=== PATIENT | female | born 1990 | race American Indian/Alaskan Native ===

== ENCOUNTER 2019-03-24 08:46 | Inpatient (IN) | payer BC, MEDICAID ==
--- NOTE | 2019-03-24 09:30 | History and Physical Report ---
History of Present Illness Date of examination: 03/24/19 Date of admission: 03/24/19 08:46 Chief complaint: C Section History of present illness: Pt is a 29yo BF EDC 03/30/19; EGA 39 1/7 weeks presents for repeat C Section. She received care at [facility] since 14 weeks and co-managed by [facility] for GDM - on Glyburide, Previous demise and Obesity. records are available and GBS is positive. Past History Past Medical History: diabetes (GDM - on Glyguride), other (Obesity) Past Surgical History: section CALL CENTER DIRECTOR History: trichomonas Social history: no significant social history, single - Obstetrical History Expected Date of Delivery: 03/30/19 Actual Gestation: 39 Week(s) 1 Day(s) : 2 Medications and Allergies Allergies Allergy/AdvReac Type Severity Reaction Status Date / Time No Known Allergies Allergy Verified 03/24/19 10:15 Home Medications Medication Instructions Recorded Confirmed Last Taken Type Preplus Ca-Fe 27 mg-FA 1 mg Tb 1 tab PO DAILY 03/24/19 03/24/19 03/21/19 History Active Meds: Active Medications Citric Acid/Sodium Citrate (Bicitra) 30 ml PO ONCE ONE Stop: 03/24/19 09:24 Famotidine (Pepcid) 20 mg IV ONCE ONE Stop: 03/24/19 09:24 Cefazolin Sodium (Ancef/Sterile Water 2 Gm/20 Ml) 2 gm in 20 mls @ 80 mls/hr IV PREOP NR; Protocol Oxytocin/Sodium Chloride (Pitocin/Ns 20 Unit/1000ml Drip) 20 units in 1,000 mls @ 0 mls/hr IV TITR TERESA Lactated Ringer's (Lactated Ringers) 1,000 mls @ 2,250 mls/hr IV PREOP TERESA Stop: 03/25/19 10:27 Metoclopramide HCl (Reglan) 10 mg IV ONCE ONE Stop: 03/24/19 09:24 Review of Systems All systems: negative - Vital Signs Vital signs: Vital Signs Temp Resp 98.6 F 03/24/19 08:57 03/24/19 08:57 Temp Pulse Resp BP Pulse Ox 98.6 F 03/24/19 08:57 03/24/19 08:57 - Physical Exam Breasts: Positive: deferred Cardiovascular: Regular rate Lungs: Positive: Clear to auscultation Abdomen: Positive: normal appearance Genitourinary (Female): Positive: normal external genitalia Uterus: Positive: enlarged Extremities: Positive: normal - Obstetrical FHR: category 1 Uterine Contraction Monitor Mode: External Results Result Diagrams: 03/24/19 10:05 All other labs normal. Assessment and Plan - Patient Problems (1) 39 weeks gestation of Onset Date: 03/24/19 Current Visit: Yes Status: Acute Plan to address problem: A: IUP @ 39 1/7 weeks Previous C Section GDM - on Glyburide P: Admit to L&D for a Repeat C Section Check BS's (2) GDM (gestational diabetes mellitus) Onset Date: 03/24/19 Current Visit: Yes Status: Acute Qualifiers: Gestational diabetes mellitus control: oral hypoglycemic-controlled Trimester: third trimester Qualified Code(s): O24.415 - Gestational diabetes mellitus in , controlled by oral hypoglycemic drugs (3) Previous section Onset Date: 03/24/19 Current Visit: Yes Status: Resolved
[2019-03-24] MEDS ORDERED: ceFAZolin/Water 2 GM/20 ML 2 GM/20 ML SYRINGE IV NR (10:00)
[2019-03-24] MEDS ORDERED: OXYTOCIN 20 UNIT/1000ML DRIP 20 UNITS/1,000 ML BAG IV SCH ×2 (10:00→14:00)
[2019-03-24] MEDS ORDERED: FAMOTIDINE 20 MG/2 ML INJ IV NR (10:30)
[2019-03-24] MEDS ORDERED: BICITRA ORAL LIQD 30ML PO NR (10:30)
[2019-03-24] MEDS ORDERED: METOCLOPRAMIDE 10 MG/2 ML INJ IV NR (10:30)
[2019-03-24] MEDS: LACTATED RINGERS 1,000 ML IV SCH ×2 (10:38→11:30)
[2019-03-24] MEDS ORDERED: ONDANSETRON 4 MG/2 ML INJ ONE (10:40)
[2019-03-24] MEDS ORDERED: DEXMEDETOMIDINE 200 MCG/2 ML VIAL IV ONE (10:40)
[2019-03-24] MEDS ORDERED: KETOROLAC 30 MG/1 ML INJ ONE (10:40)
[2019-03-24 10:50] LABS: Basophils % (Auto) 0.3 % (0.0-1.8); Eosinophils # (Auto) 0.1 K/mm3 (0.0-0.4); Eosinophils % (Auto) 0.8 % (0.0-4.3); Hematocrit 37.9 % (30.3-42.9); Hemoglobin 12.5 gm/dl (10.1-14.3); Lymphocytes % (Auto) 20.8 % (13.4-35.0); Mean Corpuscular HGB Conc 33 % (30-34); Mean Corpuscular Volume 90 fl (79-97); Monocytes # (Auto) 0.9 K/mm3 (0.0-0.8); Monocytes % (Auto) 8.7 % (0.0-7.3); Platelet Count 169 K/mm3 (140-440); Red Blood Count 4.24 M/mm3 (3.65-5.03); Red Cell Distribution Width 15.1 % (13.2-15.2)
[2019-03-24] MEDS ORDERED: diphenhydrAMINE 50 MG/ML VIAL IV PRN (11:37)
[2019-03-24] MEDS ORDERED: HYDROmorphone 1 MG/1 ML INJ IV PRN ×2 (11:37)
[2019-03-24] MEDS ORDERED: ONDANSETRON 4 MG/2 ML INJ IV PRN (11:37)
--- NOTE | 2019-03-24 11:40 | Anesthesia Consultation ---
Anesthesia Consult and Med Hx Date of service: 03/24/19 - Airway Anesthetic Teeth Evaluation: Good ROM Head & Neck: Adequate Mental/Hyoid Distance: Adequate Mallampati Class: Class III Intubation Access Assessment: Probably Good - Pulmonary Exam CTA: Yes - Cardiac Exam Cardiac Exam: RRR - Pre-Operative Health Status ASA Pre-Surgery Classification: ASA3 Proposed Anesthetic Plan: Spinal - Pulmonary Hx Smoking: No Hx Asthma: No Hx Respiratory Symptoms: No SOB: No COPD: No Home Oxygen Therapy: No Hx Pneumonia: No Hx Sleep Apnea: No - Cardiovascular System Hx Hypertension: No Hx Coronary Artery Disease: No Hx Heart Attack/AMI: No Hx Angina: No Hx Percutaneous Transluminal Coronary Angioplasty (PTCA): No Hx Cardia Arrhythmia: No Hx Pacemaker: No Hx Internal Defibrillator: No Hx Valvular Heart Disease: No Hx Heart Murmur: No Hx Peripheral Vascular Disease: No - Central Nervous System Hx Neuromuscular Disorder: No Hx Seizures: No CVA: No Hx Back Pain: Yes Hx Psychiatric Problems: No - Gastrointestinal Hx Ulcer: No Hx Gastroesophageal Reflux Disease: No - Endocrine Hx Renal Disease: No Hx End Stage Renal Disease: No Hx Cirrhosis: No Hx Liver Disease: No Hx Insulin Dependent Diabetes: No Hx Non-Insulin Dependent Diabetes: Yes (geastational DM) Hx Thyroid Disease: No Hx Hypothyroidism: No Hx Hyperthyroidism: No - Hematic Hx Anemia: Yes Hx Sickle Cell Disease: No - Other Systems Hx Alcohol Use: No Hx Substance Use: No Hx Cancer: No Hx Obesity: Yes (BMI 45)
--- NOTE | 2019-03-24 11:41 | Anesthesia Day of Surgery ---
Anesthesia Day of Surgery - Day of Surgery Patient Examined: Yes Patient H&P Reviewed: Yes Patient is NPO: Yes Beta Blockers: No Cardiac Clearance: No Pulmonary Clearance: No Jeremy's Test: N/A
[2019-03-24] MEDS ORDERED: PHENYLEPHRINE 10 MG/1 ML INJ SDV ONE (13:04)
[2019-03-24] MEDS ORDERED: SODIUM CHLORIDE 0.9% IRR 1,500 ML BOTTLE IR ONE (13:06)
[2019-03-24] MEDS ORDERED: WATER FOR IRRIG STERILE 1,500 ML BOTTLE IR ONE (13:06)
[2019-03-24] MEDS ORDERED: WITCH HAZEL/ GLYCERIN PAD TP PRN (13:40)
[2019-03-24] MEDS ORDERED: ACETAMINOPHEN 325 MG TAB PO PRN (13:40)
[2019-03-24] MEDS ORDERED: NALOXONE 0.4 MG/1 ML INJ IV PRN (13:40)
[2019-03-24] MEDS ORDERED: KETOROLAC 30 MG/1 ML INJ IV PRN (13:40)
[2019-03-24] MEDS ORDERED: SENNOSIDES 8.6 MG TAB PO PRN (13:40)
[2019-03-24] MEDS ORDERED: MAGNESIUM HYDROXIDE (MOM) ORAL LIQD UDC PO PRN (13:40)
[2019-03-24] MEDS ORDERED: LANOLIN/ZINC/DIMETHICONE (LANSINOH) 7 GM TP PRN (13:40)
[2019-03-24] MEDS ORDERED: PROMETHAZINE 25 MG RECT SUPP PR PRN (13:40)
[2019-03-24] MEDS ORDERED: oxyCODONE /ACETAMINOPHEN 5-325MG TAB PO PRN (13:40)
[2019-03-24] MEDS ORDERED: SIMETHICONE 80 MG CHEW TAB PO PRN (13:40)
[2019-03-24] MEDS ORDERED: D5W/LACTATED RINGERS 1,000 ML IV SCH (14:00)
--- NOTE | 2019-03-24 14:07 | Post Anesthesia Evaluation ---
- Post Anesthesia Evaluation Patient Participated: Yes Airway Patent: Yes Stable Respiratory Function: Yes Nausea/Vomiting: No Temp > 96.8F: Yes Pain Manageable: Yes Adequeate Hydration: Yes Anesthesia Complications: No Block Receding Appropriately: Yes Patient on Ventilator: No
--- NOTE | 2019-03-24 17:01 | Operative Report ---
Operative Report Operative Report: Date of procedure: 03/24/2019 Pre-operative diagnosis: 1. Intrauterine at 39 1/7 weeks 2. Previ ous C Section Post-operative diagnosis: Same with lower uterine segment adhesions Procedure name(s): Repeat low transverse section Surgeon: Jean-Claude Torres MD Partition Assembler: None Anesthesia: Spinal anesthesia by Kay Onofre CRNA EBL: 900 mL's Findings: A 3114 g male infant Apgars 8 at 1 minute and 9 at 5 minutes. 1+ meconium amniotic fluid. Normal uterus with lower uterine segment adhesions. Normal tubes and ovaries bilaterally. Procedure: After the patient was prepped and draped in usual sterile fashion, and after satisfactory level of epidural anesthesia was obtained, the skin knife was used to make a transverse skin incision through the previous skin scar. The incision was excised down to layer of the fascia, which was nicked in the midline and extended laterally using the Bovie cautery. The rectus muscles were dissected off the rectus fascia both superiorly and inferiorly. The rectus bellies in the midline, and the peritoneum was entered under direct visualization. The peritoneal incision was extended superiorly and inferiorly. The lower uterine adhesions were taken down using both sharp and blunt dissection. A bladder flap was created and the bladder blade was then placed. The uterus was scored in a curvilinear linear fashion, entered in the midline revealing 1+ meconium amniotic fluid. The 's head was delivered onto the surgical field, and the oropharynx and nasopharynx were bulb suctioned. The rest of the 's body was delivered, cord was doubly clamped and cut and the infant was handed to the waiting respiratory team. Cord blood was then obtained. The placenta was manually removed from the uterus, and the uterus removed from its normal anatomical position. After gentle uterine lavage, the incision was inspected and found to be without extensions. It was then closed in 2 layers using 0 Vicryl suture in a running interlocking fashion, the second layer imbricating the first. After good hemostasis was achieved, copious amounts or irrigation was performed, and the gutters were suctioned free of blood and blood clots. The Tisseel sealant was sprayed across the uterine incision, and excellent hemostasis was assured. The uterus was then returned to its normal anatomical position, and after excellent hemostasis assured, the peritoneum was re-approximated using 3-0 Vicryl suture in a running interlocking fashion, and then the rectus muscles were re-approximated using 3-0 Vicryl suture in a [id number] configuration. The fascia was then re-approximated using 0 Vicryl suture in running interlocking fashion. The subcutaneous layer was made hemostatic using Bovie cautery, and the skin edges re-approximated using 4-0 Vicryl suture in a sub-cuticular fashion. Patient tolerated the procedure well was transported to recovery in stable condition.
[2019-03-24] MEDS: ceFAZolin/NS 1 GM/50 ML 1 GM/50 ML BAG IV SCH (17:50)
[2019-03-24] MEDS: HYDROcodone/ACETAMINOPHEN 5-325 MG TAB PO PRN (21:56)
[2019-03-25 02:48] LABS: Hematocrit 32.2 % (30.3-42.9); Hemoglobin 10.3 gm/dl (10.1-14.3)
[2019-03-25] MEDS: ceFAZolin/NS 1 GM/50 ML 1 GM/50 ML BAG IV SCH (02:58)
[2019-03-25] MEDS: IBUPROFEN 800 MG TAB PO PRN (05:40)
[2019-03-25] MEDS: HYDROcodone/ACETAMINOPHEN 5-325 MG TAB PO PRN ×2 (05:40→15:45)
[2019-03-25] MEDS: PRENATAL VIT27-FE FUMARATE-FOLIC ACID VIT TAB PO SCH (10:28)
[2019-03-25] MEDS: FERROUS SULFATE 325 MG TAB PO SCH (10:28)
--- NOTE | 2019-03-25 10:47 | Progress Note ---
Assessment and Plan - Patient Problems (1) 39 weeks gestation of Onset Date: 03/24/19 Current Visit: Yes Status: Resolved (2) GDM (gestational diabetes mellitus) Onset Date: 03/24/19 Current Visit: Yes Status: Resolved Qualifiers: Gestational diabetes mellitus control: oral hypoglycemic-controlled Tr imester: third trimester Qualified Code(s): O24.415 - Gestational diabetes mellitus in , controlled by oral hypoglycemic drugs (3) Previous section Onset Date: 03/24/19 Current Visit: Yes Status: Resolved (4) Status post Onset Date: 03/25/19 Current Visit: Yes Status: Resolved Plan to address problem: A: S/P Repeat C Section - POD #1 Doing well Asymptomatic anemia - stable GDM - stable P: Continue RPOC D/C accuchecks Anticipate discharge in 24-48hrs Subjective - Subjective Date of service: 03/25/19 Principal diagnosis: s/p Repeat C Section - POD #1 Interval history: Pt is feeling well without complaints. Bleeding improved. Patient reports: appetite normal, voiding normally, pain well controlled, flatus, ambulating normally, no dizzy ambulation, no nauseated : doing well, nursing well, bottle feeding Objective - Vital Signs Latest vital signs: Vital Signs Temp Pulse Resp BP BP Pulse Ox 03/25/19 07:46 98.1 F 60 20 78/39 98 03/25/19 05:18 80 97 03/25/19 04:41 98.4 F 20 108/62 03/25/19 00:14 98.5 F 81 20 105/43 99 03/24/19 20:58 97.9 F 18 03/24/19 20:13 71 93/42 98 03/24/19 17:04 98.5 F 56 L 18 93/44 100 03/24/19 14:44 98.1 F 03/24/19 14:30 56 L 20 98/44 92 03/24/19 14:15 57 L 15 103/42 96 03/24/19 14:00 66 13 102/51 99 03/24/19 13:55 50 L 12 118/66 99 03/24/19 13:48 98.3 F 66 12 102/43 99 03/24/19 13:15 97.7 F 62 16 99/62 100 03/24/19 12:35 90 155/90 03/24/19 12:32 80 146/92 03/24/19 12:21 79 159/89 03/24/19 12:04 83 158/90 Intake and Output 03/24/19 03/25/19 03/25/19 22:59 06:59 14:59 Intake Total 290 120 Output Total 450 Balance 290 -450 120 Intake: IV 50 ANCEF/NS 1 GM/50 ML 1 gm 50 In 50 ml @ 100 mls/hr IV Q8H [facility] Rx#:[id number] Oral 240 120 Output: Urine 450 Indwelling Catheter 400 Void 50 Other: Total, Intake Amount 240 120 Total, Output Amount 450 # Voids Void 1 - Exam Breasts: Present: deferred Abdomen: Present: normal appearance, soft Uterus: Present: normal, firm, fundal height below umbilicus Extremities: Present: normal Incision: Present: normal, dry, intact, dressed - Labs Labs: Abnormal lab results 03/24/19 03/24/19 Range/Units 10:05 23:42 [place] % (Auto) 8.7 H (0.0-7.3) % [place] # 0.9 H (0.0-0.8) K/mm3 POC Glucose 108 H (70-105) Laboratory Tests 03/24/19 03/24/19 03/24/19 10:02 10:05 10:05 WBC 9.8 RBC 4.24 Hgb 12.5 Hct 37.9 MCV 90 MCH 30 MCHC 33 RDW 15.1 Plt Count 169 Lymph % (Auto) 20.8 [place] % (Auto) 8.7 H Eos % (Auto) 0.8 Baso % (Auto) 0.3 Lymph # 2.0 [place] # 0.9 H Eos # 0.1 Baso # 0.0 Seg Neutrophils % 69.4 Seg Neutrophils # 6.8 POC Glucose 98 RPR Blood Type O POSITIVE Antibody Screen Negative 03/24/19 03/24/19 03/25/19 10:05 23:42 02:21 WBC RBC Hgb 10.3 Hct 32.2 MCV MCH MCHC RDW Plt Count Lymph % (Auto) [place] % (Auto) Eos % (Auto) Baso % (Auto) Lymph # [place] # Eos # Baso # Seg Neutrophils % Seg Neutrophils # POC Glucose 108 H RPR Nonreactive Blood Type Antibody Screen 09/25/19 08:01 WBC RBC Hgb Hct MCV MCH MCHC RDW Plt Count Lymph % (Auto) [place] % (Auto) Eos % (Auto) Baso % (Auto) Lymph # [place] # Eos # Baso # Seg Neutrophils % Seg Neutrophils # POC Glucose 92 RPR Blood Type Antibody Screen
[2019-03-25] MEDS ORDERED: MEASLES, MUMPS & RUBELLA 12,500 UNIT/0.5 ML VACCINE SUB-Q ONE (13:42)
[2019-03-25] MEDS ORDERED: TETANUS,DIPH,PERTUSS(ACELL) VACCINE 0.5 ML SYRINGE IM ONE (13:42)
[2019-03-26] MEDS: HYDROcodone/ACETAMINOPHEN 5-325 MG TAB PO PRN (00:36)
[2019-03-26] MEDS: IBUPROFEN 800 MG TAB PO PRN (05:56)
[2019-03-26] MEDS ORDERED: TETANUS,DIPH,PERTUSS(ACELL) VACCINE 0.5 ML SYRINGE IM ONE (06:00)
--- NOTE | 2019-03-26 09:04 | Progress Note ---
Assessment and Plan - Patient Problems (1) 39 weeks gestation of Onset Date: 03/24/19 Current Visit: Yes Status: Resolved (2) GDM (gestational diabetes mellitus) Onset Date: 03/24/19 Current Visit: Yes Status: Resolved Qualifiers: Gestational diabetes mellitus control: oral hypoglycemic-controlled Tr imester: third trimester Qualified Code(s): O24.415 - Gestational diabetes mellitus in , controlled by oral hypoglycemic drugs (3) Previous section Onset Date: 03/24/19 Current Visit: Yes Status: Resolved (4) Status post Onset Date: 03/25/19 Current Visit: Yes Status: Resolved Plan to address problem: A: S/P Repeat C Section - POD #2 Doing well Asymptomatic anemia - stable GDM - stable P: Continue RPOC May go home tomorrow. Subjective - Subjective Date of service: 03/26/19 Principal diagnosis: s/p Repeat C Section - POD #2 Interval history: Pt is feeling well without complaints. She is tolerating a reg diet without nausea or vomiting, ambulating and voiding without difficulty. Patient reports: appetite normal, voiding normally, pain well controlled, flatus, bowel movement, ambulating normally, no dizzy ambulation, no nauseated : doing well, bottle feeding Objective - Vital Signs Latest vital signs: Vital Signs Temp Pulse Resp BP BP Pulse Ox 03/26/19 08:11 98.1 F 81 16 119/68 98 03/26/19 01:00 98.1 F 75 20 124/71 98 03/25/19 16:30 98.5 F 86 20 116/69 Intake and Output 03/25/19 03/26/19 03/26/19 22:59 06:59 14:59 Intake Total 360 Balance 360 Intake: Oral 360 Other: Total, Intake Amount 120 # Voids Void 1 - Exam Breasts: Present: deferred Abdomen: Present: normal appearance, soft Uterus: Present: normal, firm, fundal height below umbilicus Extremities: Present: normal Incision: Present: normal, dry, intact, dressed
[2019-03-26] MEDS: FERROUS SULFATE 325 MG TAB PO SCH (11:00)
[2019-03-26] MEDS: PRENATAL VIT27-FE FUMARATE-FOLIC ACID VIT TAB PO SCH (11:00)
[2019-03-27 09:13] VITALS: BP 117/68
--- NOTE | 2019-03-27 10:01 | Discharge Summary ---
Providers - Providers Date of Admission: 03/24/19 08:46 Date of discharge: 03/27/19 Attending physician: KASSANDRA MCELROY Primary care physician: KASSANDRA MCELROY Hospitalization Reason for admission: section, IUP at term Delivery: Procedure: section, repeat low transverse Episiotomy: none Laceration: none Incision: normal, dry, intact Other procedures: none complications: none Discharge diagnosis: IUP at term delivered [place] baby: male Hospital course: Pt is a 29yo BF EDC 03/30/19; EGA 39 07/07 weeks who presented for a repeat C Section. She received care at [facility] since 14 weeks and co-managed by [facility] for GDM - on Glyburide, Previous demise and Obesity. She underwent an uncomplicated Repeat C Section and tolerated the procedure well. By POD #2 she was tolerating a reg diet without nausea or vomiting, ambulating and voiding without difficulty. She was therefore discharged to home on POD #3 in stable condition. Condition at discharge: Good Disposition: DC-01 TO HOME OR SELFCARE - Discharge Diagnoses (1) 39 weeks gestation of Status: Resolved (2) GDM (gestational diabetes mellitus) Status: Resolved Qualifiers: Gestational diabetes mellitus control: oral hypoglycemic-controlled Trimester: third trimester Qualified Code(s): O24.415 - Gestational diabetes mellitus in , controlled by oral hypoglycemic drugs (3) Previous section Status: Resolved (4) Status post Status: Resolved Plan - Discharge Medications Prescriptions: Ferrous Sulfate [Feosol 325 MG tab] 325 mg PO BID #60 tablet Ibuprofen [Motrin 800 MG tab] 800 mg PO Q6H PRN #30 tablet PRN Reason: Pain, Mild (1-3) HYDROcodone/APAP 5-325 [[place] 5-325 mg TAB] 1 each PO Q6HR PRN #30 tablet PRN Reason: Pain, Moderate (4-6) Vit-Fe Fumar-FA [ Vitamin] 1 each PO QDAY #30 tablet - Provider Discharge Summary Activity: routine, no sex for 6 weeks, no heavy lifting 4 weeks, no strenuous exercise Diet: routine Instructions: routine Additional instructions: [] Smoking cessation referral if applicable(refer to patient education folder for contact #) [] Refer to [facility]'s [facility] Booklet Call your doctor immediately for: * Fever > 100.5 * Heavy vaginal bleeding ( >1 pad per hour) * Severe persistent headache * Shortness of breath * Reddened, hot, painful area to leg or breast * Drainage or odor from incision. * Keep incision clean and dry at all times and follow doctor's instructions regarding bathing/showering - Follow up plan Follow up: KASSANDRA MCELROY MD [Primary Care Provider] - 7 Days ANDRE MAJOR CNM [Advanced Practice Nurse] - 7 Days
[2019-03-27] MEDS: PRENATAL VIT27-FE FUMARATE-FOLIC ACID VIT TAB PO SCH (11:21)
[2019-03-27] MEDS: FERROUS SULFATE 325 MG TAB PO SCH (11:22)
[2019-03-27] MEDS: HYDROcodone/ACETAMINOPHEN 5-325 MG TAB PO PRN (11:22)
== END 2019-03-27 17:15 | disposition home or self-care (01) | DRG 788 ==
LOC: EDBD 08:46 → APU 08:46 → OB 15:04
PROVIDERS: ADMIT Obstetrics & Gynecology; ATTEND Obstetrics & Gynecology
PROC: 10D00Z1 Extraction of Products of Conception, Low, Open Approach (ICD-10-PCS; principal; 2019-03-24)
PROC: 3E0234Z Introduction of Serum, Toxoid and Vaccine into Muscle, Percutaneous Approach (ICD-10-PCS; 2019-03-25)
DX: O34.211 Maternal care for low transverse scar from previous cesarean delivery (principal); O99.214 Obesity complicating childbirth; O24.425 Gestational diabetes mellitus in childbirth, controlled by oral hypoglycemic drugs; O99.824 Streptococcus B carrier state complicating childbirth; E66.9 Obesity, unspecified; O77.0 Labor and delivery complicated by meconium in amniotic fluid; O99.02 Anemia complicating childbirth; D64.9 Anemia, unspecified; Z3A.39 39 weeks gestation of pregnancy; Z37.0 Single live birth; Z71.3 Dietary counseling and surveillance; Z23 Encounter for immunization
CPT/HCPCS: 36415; 82962; 85014; 85018; 85025; 86592; 86850; 86900; 86901; 90471; 90715; G0378; C9250; J0690; J1885; J2370; J2405; J2590; J2765; J3490; J7120; J7121